=== PATIENT | female | born 1975 | race Caucasian/White ===

== ENCOUNTER → 2021-12-13 | Outpatient (CLI) | payer OTHER ==
--- NOTE | 2021-12-13 15:38 | Diagnostic Imaging Report ---
PROCEDURE: Pelvic comp/transvaginal sonogram. TECHNIQUE: Complete transabdominal and transvaginal pelvic ultrasound was performed. In addition, limited pelvic Doppler was performed. INDICATION: Dysfunctional uterine bleeding and menorrhagia and anemia. FINDINGS: Uterus is anteverted measuring 9.1 x 5.3 x 6.3 cm. Endometrium is approximately 11 mm in thickness. There is an area of heterogeneity in the anterior uterine body measuring approximately 2.0 x 1.9 x 2.1 cm. This may represent a fibroid. Right ovary measures 2.9 x 2.2 x 1.8 cm and left ovary measures 2.8 x 2.0 x 1.3 cm. Both ovaries show blood flow. The right ovary does contain an approximately 17 mm cyst. There are also multiple cervical nabothian cysts. No free fluid is seen. IMPRESSION: 1. Probable uterine fibroid. 2. 17 mm right ovarian cyst. Dictated by: Dictated on workstation # [id number]
== END ==
LOC: RAD 14:00
PROVIDERS: ATTEND Surgery
DX: N83.201 Unspecified ovarian cyst, right side (principal); N93.8 Other specified abnormal uterine and vaginal bleeding; D64.9 Anemia, unspecified
CPT/HCPCS: 76830; 76856

== ENCOUNTER 2022-04-21 05:36 | Outpatient (CLI) | payer OTHER ==
[~2022-04-21] VITALS: Ht 162.5 cm; Wt 106.8 kg
[2022-04-23] MEDS ORDERED: MONT10TA21 PO (12:52)
[2022-04-23] MEDS ORDERED: MEDR10TA PO (12:52)
[2022-04-23] MEDS ORDERED: FAMO40TA72 PO (12:52)
[2022-04-23] MEDS ORDERED: VENL150C3 PO (12:52)
== END 2022-04-23 13:05 | disposition home or self-care (01) ==
LOC: PREOP 05:36
PROVIDERS: ATTEND Obstetrics & Gynecology

== ENCOUNTER 2022-04-28 06:54 | Day surgery (SDC) | payer OTHER ==
[2022-04-28] VITALS (11 sets, daily range): BP systolic 95–112; BP diastolic 54–75
[~2022-04-28] VITALS: Ht 170.2 cm; Wt 106.8 kg
[~2022-04-28 06:54] MED LIST: FAMO40TA72 PO; MEDR10TA PO; MONT10TA21 PO; VENL150C3 PO
[2022-04-28] MEDS ORDERED: BUPIVACAINE 0.25% 30 ML (SENSORCAINE) VIAL ONE (07:13)
[2022-04-28 07:44] LABS: BASOPHILS % (AUTO) 1 % (0-10); EOSINOPHILS # (AUTO) 0.2 10^3/uL (0.0-0.3); EOSINOPHILS % (AUTO) 3 % (0-10); HEMATOCRIT 36 % (35-52); HEMOGLOBIN 11.5 g/dL (11.5-16.0); LYMPHOCYTES # (AUTO) 1.5 10^3/uL (1.0-4.0); LYMPHOCYTES % (AUTO) 27 % (12-44); MEAN CORPUSCULAR HEMOGLOBIN 26 pg (25-34); MEAN CORPUSCULAR HGB CONC 32 g/dL (32-36); MEAN CORPUSCULAR VOLUME 82 fL (80-99); MEAN PLATELET VOLUME 11.8 fL (9.0-12.2); MONOCYTES # (AUTO) 0.3 10^3/uL (0.0-1.0); MONOCYTES % (AUTO) 6 % (0-12); NEUTROPHILS # (AUTO) 3.4 10^3/uL (1.8-7.8); NEUTROPHILS % (AUTO) 63 % (42-75); PLATELET COUNT 289 10^3/uL (130-400); WHITE BLOOD COUNT 5.4 10^3/uL (4.3-11.0)
[2022-04-28] MEDS ORDERED: SCOPOLAMINE 1.5 MG (TRANSDERM-SCOP) PATCH TOP ONE (07:45)
[2022-04-28] MEDS ORDERED: ONDANSETRON 4 MG/2 ML (SDV) Z0FRAN IV ONE (07:45)
[2022-04-28] MEDS ORDERED: FAMOTIDINE 20MG/2ML IV (PEPCID) IV ONE (07:45)
[2022-04-28] MEDS ORDERED: LIDOCAINE PF 2% 5 ML (XYLOCAINE) VIAL ONE (07:47)
[2022-04-28] MEDS ORDERED: ROCURONIUM 50 MG/5 ML (ZEMURON) VIAL IV ONE (07:47)
[2022-04-28] MEDS ORDERED: MIDAZOLAM 2 MG/2 ML (VERSED) VIAL ONE (07:47)
[2022-04-28] MEDS ORDERED: fentaNYL INJ 100 MCG/2 ML AMP ONE (07:47)
[2022-04-28] MEDS ORDERED: ONDANSETRON 4 MG/2 ML (SDV) Z0FRAN ONE (07:47)
[2022-04-28] MEDS ORDERED: proPOfol 200 MG/20 ML (DIPRIVAN) VIAL IV ONE (07:47)
[2022-04-28] MEDS ORDERED: ceFAZolin 2 GM IV Premixed 50 ML IV ONE (08:00)
[2022-04-28] MEDS ORDERED: metroNIDAZOLE 500MG/100ML IVPB 100 ML IV ONE (08:00)
[2022-04-28] MEDS ORDERED: LACTATED RINGERS 1,000 ML IV PRN (08:00)
--- NOTE | 2022-04-28 08:18 | Progress Note-Pre Operative ---
Pre-Operative Progress Note H&P Reviewed The H&P was reviewed, patient examined and no changes noted. Date Seen by Provider: Apr 28, 2022 Time Seen by Provider: 08:15 Date H&P Reviewed: Apr 28, 2022 Time H&P Reviewed: 08:15 Pre-Operative Diagnosis: AUB, Fibroid uterus, Chronic blood loss anemia FRIDA MILLS DO Apr 28, 2022 08:18
--- NOTE | 2022-04-28 08:20 | Discharge Inst-Women's Service ---
Discharge Inst-Women's Serv Depart Medication/Instructions New, Converted or Re-Newed RX: Transmitted to Pharmacy Problems Reviewed?: Yes Consults/Follow Up Additional Follow Up: Yes Activity Activity: Activity as Tolerated Driving Instructions: No Driving for 1 Week NO SMOKING: NO SMOKING Nothing Inside Vagina: No Douching, No [place], No Tampons Diet Discharge Diet: No Restrictions Symptoms to Report to : Bleeding Excessive, Pain Increased, Fever Over 101 Degrees F, Vaginal Bleeding Increase, Questions/Concerns For Any Problems or Questions: Contact Your Physician Skin/Wound Care Infection Signs and Symptoms: Increased Redness, Foul Odor of Wound, Increased Drainage, Skin Itchy or Has a Rash, Increased Swelling, Temperature Above 101 F Operative Area Clean and Dry: Keep Incision Clean/Dry Stitches/[place]ach[place]/Dermabond: Dermabond, Care of Stitches Bathing Instructions: FRIDA Win DO Apr 28, 2022 08:20
[2022-04-28] MEDS ORDERED: DOCU-143 PO (08:21)
[2022-04-28] MEDS ORDERED: IBUP-1773 PO (08:21)
[2022-04-28] MEDS ORDERED: HYDR-3817 PO (08:21)
[2022-04-28] MEDS ORDERED: SIMETHICONE 80 MG (MYLICON) CHEW PO PRN (08:30)
[2022-04-28] MEDS ORDERED: DOCUSATE SODIUM 100 MG (COLACE) CAP PO PRN (08:30)
[2022-04-28] MEDS ORDERED: ZOLPIDEM 5 MG (AMBIEN) TAB PO PRN (08:30)
[2022-04-28] MEDS ORDERED: HYDROcodone/APAP 7.5 MG/325 MG (LORTAB, LORCET PLUS) TABLET PO PRN (08:30)
[2022-04-28] MEDS ORDERED: ONDANSETRON 4 MG/2 ML (SDV) Z0FRAN IV PRN (08:30)
[2022-04-28] MEDS ORDERED: ANTACID SUSP 30 ML UDC (MYLANTA) PO PRN (08:30)
[2022-04-28] MEDS ORDERED: CHLORASEPTIC LOZENGE MM PRN (08:30)
[2022-04-28] MEDS: LACTATED RINGERS 1,000 ML IV SCH ×2 (09:00→16:40)
[2022-04-28] MEDS ORDERED: NEOSTIGMINE (BLOXIVERZ ) 1 MG/1ML 10 ML VIAL ONE (09:25)
[2022-04-28] MEDS ORDERED: GLYCOPYRROLATE 0.2 MG/ML (ROBINUL) 2 ML VIAL ONE (09:25)
[2022-04-28] MEDS ORDERED: SEVOFLURANE (ULTANE) 15 ML INHAL SOLN ONE (09:33)
[2022-04-28] MEDS ORDERED: MEPERIDINE (DEMEROL) INJ 50 MG/ML IVP ONE (10:00)
[2022-04-28] MEDS ORDERED: PROMETHAZINE INJ 25 MG/ML (PHENERGAN) AMP IVP ONE (10:00)
[2022-04-28] MEDS ORDERED: morphine INJ 10 MG/ML 1ML (SYR OR VIAL) IVP ONE (10:00)
[2022-04-28] MEDS ORDERED: ONDANSETRON 4 MG/2 ML (SDV) Z0FRAN IVP PRN (10:00)
[2022-04-28] MEDS ORDERED: HYDROmorphone 2 MG/ML VIAL (DILAUDID) IV ONE (10:00)
[2022-04-28] MEDS ORDERED: KETOROLAC 30 MG/ML VIAL IVP ONE (10:00)
[2022-04-28] MEDS ORDERED: MEPERIDINE (DEMEROL) INJ 50 MG/ML ONE (10:02)
[2022-04-28] MEDS ORDERED: KETOROLAC 30 MG/ML VIAL ONE (10:03)
[2022-04-28] MEDS ORDERED: CEPACOL SORE THROAT-COUGH LOZENGE PO PRN (11:45)
--- NOTE | 2022-04-28 11:54 | Anesthesia-General Post-Op ---
General Patient Condition Mental Status/LOC: Same as Preop Cardiovascular: Satisfactory Nausea/Vomiting: Absent Respiratory: Satisfactory Pain: Controlled Complications: Absent Post Op Complications Complications None Follow Up Care/Instructions Patient Instructions None needed. Anesthesia/Patient Condition Patient Condition Patient is doing well, no complaints, stable vital signs, no apparent adverse anesthesia problems. No complications reported per nursing. BAKARI DAWSON CRNA Apr 28, 2022 11:54
[2022-04-28] MEDS ORDERED: IBUPROFEN 600 MG (MOTRIN) TAB PO SCH (12:00)
[2022-04-28] MEDS: KETOROLAC 30 MG/ML VIAL IVP PRN ×2 (16:40→21:46)
--- NOTE | 2022-04-28 19:31 | OPERATIVE REPORT ---
DATE OF SERVICE: 04/28/2022 PREOPERATIVE DIAGNOSES: 1. A 46-year-old female with abnormal uterine bleeding. 2. Fibroid uterus. 3. Chronic blood loss anemia. POSTOPERATIVE DIAGNOSES: 1. A 46-year-old female with abnormal uterine bleeding. 2. Fibroid uterus. 3. Chronic blood loss anemia. PROCEDURE: Robotic-assisted total laparoscopic hysterectomy with bilateral salpingectomy. SURGEON: Sai Rey DO BILINGUAL SPEECH THERAPIST: Alea Medina DNP, who was necessary for manipulation and retraction throughout the procedure. ANESTHESIA: General endotracheal. ESTIMATED BLOOD LOSS: Minimal. URINE OUTPUT: 100 mL clear at the end of the procedure. FLUIDS: 1500 mL lactated Ringer's solution. FINDINGS: Slightly bulky and hyperemic uterus, grossly normal appearing bilateral fallopian tubes and ovaries. SPECIMEN SENT: Uterus, bilateral fallopian tubes. INDICATIONS FOR PROCEDURE: This 46-year-old female is a patient who was referred to my office by Alessandra Zhang, nurse practitioner locally who had evaluated the patient for abnormal bleeding. She had an ultrasound, which revealed a fibroid that was submucous as well as had given the patient iron infusions due to chronic blood loss anemia. She also had an endometrial biopsy, which was negative. Due to the patient's ongoing issues with bleeding, having to be constantly on Provera, I discussed with the patient proceeding with definitive measures for her bleeding, which would be hysterectomy. Risks of the procedure were discussed with the patient in detail as well as alternatives. After all of her questions were answered, she was agreeable to proceed. She was planned and scheduled, consent was obtained, the patient was taken to the operating room. OPERATIVE REPORT IN DETAIL: Once in the operating room, general anesthesia was found to be adequate. She was placed in dorsal lithotomy position, prepped and draped in normal sterile fashion where a timeout was performed. Paris catheter was placed using sterile technique. A weighted speculum inserted to the patient's vagina. An 0 Vicryl suture was placed in anterior lip of the cervix, which was used as my retraction point. I then placed a Gertrudis uterine manipulator with 8 cm tip and a 3.5 cm colpotomy ring. The manipulator tip was advanced into the uterus with the balloon was deployed and the colpotomy ring was advanced around the vaginal fornix. I then removed the remainder of the instruments from the patient's vagina, performed change of gloves, turned my attention to the abdomen where the subcostally at the midclavicular line on the left side, I introduced the Veress needle until intraperitoneal placement was confirmed using saline drop test. An opening pressure 4 mmHg was noted. I proceeded to max pressure of 15 mmHg, at which point, I made a supraumbilical incision, this is 8 mm incision after infiltrating the skin using 0.25% Marcaine. Once this incision was made, I introduced 8 mm blunt da Arti laparoscopic trocar. Once this was in place, I am able to confirm intraperitoneal placement using the da Arti laparoscope. There was no evidence of damage from entry site. There is no definitive damage in the left upper quadrant. The Veress entry site and the Veress was removed at that point. I then had the patient placed in steep Trendelenburg where I am able to visualize all my pelvic anatomy as defined in my findings above. I placed two lateral trocars, these were both 8 cm lateral to my supraumbilical trocars and both 8 mm incisions. Once both of these trocars are in place, I bring in the da Arti robot and docked in appropriate fashion, placing the SynchroSeal device in left hand and monopolar capri in the right hand. I performed the following dissection bilaterally at the operative console. At the uteroovarian ligament, I sealed and transected this using the SynchroSeal device. I then created a window in the mesosalpinx, took this laterally down the mesosalpinx amputating the fallopian tube from its surrounding blood supply. I then grasped, sealed, and transected the round ligament, which allows me to grasp the broad ligament, which I sealed and transect down to the level of the lower uterine segment, at which point I the anterior and posterior leaflets of broad ligament. Anterior leaflet was taken around the anterior vaginal fornix. Posterior leaflets was taken around the posterior vaginal fornix. This allows me to seal and transect the uterine vessels laterally. After I skeletonized, I am able to identify the ureters, clear of their dissection plane. I then created a colpotomy at 12 o'clock position using monopolar capri and took this circumferentially around the vaginal fornix, amputating the cervix away from the vagina. The entire specimen was then removed through the vagina. I then closed the vaginal cuff using 2-0 V-Loc in a running fashion. There was no active bleeding noted from the vaginal cuff. After this was done, I then undocked the da Arti robot and proceeded with remainder of the case laparoscopically. I copiously irrigated the pelvis using normal saline. Once again, there was no active bleeding noted from any of my dissection planes. I placed Surgiflo hemostatic agent over all my planes of dissection and the vaginal cuff and have the patient taken out of steep Trendelenburg where I removed the lateral trocars under direct visualization of the laparoscope. The infraumbilical trocars left in place to release insufflation and to introduce 10 mL of 0.25% Marcaine into peritoneal cavity for postoperative pain management. I then removed this trocar as well. The skin reapproximated using 4-0 Monocryl in interrupted subcuticular stitches. Dermabond was applied to incision and Band-Aids were placed over the incisions as well. Paris catheter was left in place. Two grams of Ancef, 500 mg of Flagyl were given preoperatively for infection prophylaxis. Job ID: [id number] DocumentID: [id number] Dictated Date: 04/28/2022 10:00:42 Pe Manager Date: 04/28/2022 19:31:02 Dictated By: DO ELSY DUMONT
[2022-04-29] MEDS: LACTATED RINGERS 1,000 ML IV SCH (00:26)
[2022-04-29 00:27] VITALS: BP 94/55
[2022-04-29 04:20] VITALS: BP 97/58
[2022-04-29] MEDS: KETOROLAC 30 MG/ML VIAL IVP PRN (04:20)
[2022-04-29 10:33] VITALS: BP 110/55
--- NOTE | 2022-05-08 08:18 | History & Physical-Surgical ---
HPO-Surgical History of Present Illness Chief Complaint: AUB Diagnosis/Surgical Indication: AUB, Fibroid uterus, Chronic blood loss anemia Procedure: ROBOTIC ASSISTED TOTAL LAPAROSCOPIC HYSTERECTOMY WITH POSSIBLE BILATERAL SALPINGO OOPHORECTOMY Date of Surgery: Apr 28, 2022 Allergies and Home Medications Allergies Coded Allergies: No Known Drug Allergies (Unverified , 04/23/22) Patient Home Medication List Home Medication List Reviewed: Yes Docusate Sodium (Colace) 100 Mg Capsule, 100 MG PO BID PRN for CONSTIPATION-1ST LINE Prescribed by: FRIDA MILLS on 04/28/22820 Famotidine (Pepcid) Unknown Strength Tablet, Unknown Dose PO, (Reported) Entered as Reported by: ARABELLA YADAV on 04/23/221251 Last Action: Reviewed Hydrocodone/Acetaminophen (Hydrocodone-Acetamin 7.5-325) 7.5 Mg-325 Mg Tablet, 2 EACH PO Q6H PRN for PAIN Prescribed by: FRIDA MILLS on 04/28/22820 Ibuprofen (Ibuprofen) 600 Mg Tablet, 600 MG PO Q6H Prescribed by: FRIDA MILLS on 04/28/22820 Montelukast Sodium (Singulair) 10 Mg Tablet, 10 MG PO DAILY, (Reported) Entered as Reported by: ARABELLA YADAV on 04/23/221251 Last Action: Reviewed Venlafaxine HCl (Effexor Xr) 150 Mg Cap.er.24h, 150 MG PO DAILY, (Reported) Entered as Reported by: ARABELLA YADAV on 04/23/221251 Last Action: Reviewed Past Bcwktxn-Tcfyaw-Anevli Hx Patient Social History Smoking Status: Former Smoker Former Smoker, Quit: Apr 23, 2018 2nd Hand Smoke Exposure: No Recent Hopitalizations: No Immunizations Up To Date Tetanus Booster (TDap): Unknown Seasonal Allergies Seasonal Allergies: No Surgeries Yes (BILATERAL CTR, LEFT KNEE SCOPY, EXCISION CYST OVARY) Tubal Ligation Respiratory No Currently Using CPAP: No Currently Using BIPAP: No Cardiovascular No Neurological No Reproductive System Sexually Transmitted Disease: No HIV/AIDS: No Female Reproductive Disorders: Menstrual Problems, Ovarian Cyst Genitourinary No Gastrointestinal Yes Gastroesophageal Reflux Musculoskeletal No Endocrine History of Endocrine Disorders: No HEENT History of HEENT Disorders: No Cancer No Psychosocial History of Psychiatric Problem: Yes Behavioral Health Disorders: Depression Integumentary History of Skin or Integumenta: No Blood Transfusions History of Blood Disorders: No Exam Vital Signs Capillary Refill : Less Than 3 Seconds General Appearance: Alert, Oriented X3 HEENT: Atraumatic Respiratory: Clear to Auscultation Cardiovascular: Regular Rate Abdominal: Normal Bowel Sounds Extremities: No Clubbing Skin: No Rashes Neuro: Normal Gait Psych/Mental Status: Mental Status NL Assessment/Plan Assessment and Plan Fibroid uterus AUB P: RATLH w/ poss BSO Admission Diagnosis Fibroid uterus AUB Admission Status: Other (Same Day Surgery) FRIDA MILLS DO May 08, 2022 08:18
== END 2022-04-29 10:46 | disposition home or self-care (01) ==
LOC: SDC 06:54 → WS 10:55 → SDC 04-29 10:46
PROVIDERS: ATTEND Obstetrics & Gynecology
DX: D25.9 Leiomyoma of uterus, unspecified (principal); D50.0 Iron deficiency anemia secondary to blood loss (chronic); N88.8 Other specified noninflammatory disorders of cervix uteri; N83.8 Other noninflammatory disorders of ovary, fallopian tube and broad ligament; E66.01 Morbid (severe) obesity due to excess calories; Z68.41 Body mass index [BMI] 40.0-44.9, adult; Z68.36 Body mass index [BMI] 36.0-36.9, adult; Z87.891 Personal history of nicotine dependence
CPT/HCPCS: 36415; 84703; 85025; 87081; 88307; 94664